=== PATIENT | female | born 1935 | race Caucasian/White ===

== ENCOUNTER 2018-03-03 03:34 | Emergency (ER) | payer MEDICARE, OTHER ==
[~2018-03-03] VITALS: Ht 162.6 cm; Wt 80.7 kg
--- NOTE | 2018-03-03 03:40 | NUR ---
Dr. Martinez at bedside for MSE.
[2018-03-03] MEDS ORDERED: HYDROCODONE/APAP 5-325MG TABLET PO ONE (03:45)
[2018-03-03] MEDS ORDERED: HYDROCODONE/APAP 5-325MG TABLET ONE (03:55)
[2018-03-03] MEDS ORDERED: GABA-532 PO (04:05)
[2018-03-03] MEDS ORDERED: ASPI-605 PO (04:05)
[2018-03-03] MEDS ORDERED: MULT-1119 PO (04:05)
[2018-03-03] MEDS ORDERED: MECL-102 PO (04:05)
[2018-03-03] MEDS ORDERED: TRAM50TA2 PO (04:05)
[2018-03-03] MEDS ORDERED: LOSA1TAB39 PO (04:05)
[2018-03-03] MEDS ORDERED: OMEP20CA10 PO (04:05)
[2018-03-03] MEDS ORDERED: ERGO2000 PO (04:05)
[2018-03-03] MEDS ORDERED: SIMV20TA6 PO (04:05)
[2018-03-03] MEDS ORDERED: METO-356 PO (04:05)
[2018-03-03] MEDS ORDERED: FENO134C PO (04:05)
[2018-03-03] MEDS ORDERED: MAGN400C PO (04:05)
--- NOTE | 2018-03-03 04:40 | NUR ---
Pt bib rescue [id number] from home, pt had a mechanical fall in the kitchen, was sitting in a chair, fell asleep, fell on right shoulder.
[2018-03-03] MEDS ORDERED: diphenhydrAMINE 50 MG/1 ML VIAL IM ONE (05:15)
[2018-03-03] MEDS ORDERED: MORPHINE SULFATE 4 MG/1 ML DISP.SYRIN IM ONE (05:15)
[2018-03-03] MEDS ORDERED: MORPHINE SULFATE 4 MG/1 ML DISP.SYRIN ONE (05:16)
[2018-03-03] MEDS ORDERED: diphenhydrAMINE 50 MG/1 ML VIAL ONE (05:16)
--- NOTE | 2018-03-03 05:22 | NUR ---
Patient discharged to home in stable conditon. Written and verbal after care instructions given. Patient verbalizes understanding of instructions. Pt out of ER via wheelchair, VSS, no acute signs of distress, all belongings taken, to be driven by via private vehicle.
[2018-03-03 05:26] VITALS: BP 163/57
== END 2018-03-03 05:26 | disposition home or self-care (01) ==
LOC: ER 03:44
DX: S42.291A Other displaced fracture of upper end of right humerus, initial encounter for closed fracture (principal); I10 Essential (primary) hypertension; E78.5 Hyperlipidemia, unspecified; K21.9 Gastro-esophageal reflux disease without esophagitis; W01.0XXA Fall on same level from slipping, tripping and stumbling without subsequent striking against object, initial encounter; Y93.89 Activity, other specified; Y92.89 Other specified places as the place of occurrence of the external cause; Y99.8 Other external cause status
CPT/HCPCS: 73020; 96372 ×2; 99284; A4663; J1200; J2270